=== PATIENT | female | born 1955 | race Caucasian/White ===

== ENCOUNTER 2023-02-05 14:53 | Emergency (ER) | payer SELFPAY ==
[~2023-02-05] VITALS: Ht 157.5 cm; Wt 88.0 kg
[2023-02-05 15:21] VITALS: BP 137/90; PULSE 81; RESP 18; TEMP 97.9; O2SAT 99
[2023-02-05] MEDS ORDERED: IBUPROFEN 600MG TABLET PO ONE (16:30)
[2023-02-05] MEDS ORDERED: CYCL10TA21 MT (17:08)
[2023-02-05] MEDS ORDERED: IBUP-2029 MT (17:08)
== END 2023-02-05 17:48 | disposition home or self-care (01) ==
LOC: ER 15:55
DX: S40.012A Contusion of left shoulder, initial encounter (principal); S40.011A Contusion of right shoulder, initial encounter; E78.00 Pure hypercholesterolemia, unspecified; I10 Essential (primary) hypertension; V49.49XA Driver injured in collision with other motor vehicles in traffic accident, initial encounter; Y93.89 Activity, other specified; Y92.89 Other specified places as the place of occurrence of the external cause; Y99.8 Other external cause status
CPT/HCPCS: 71045; 73030; 99284